=== PATIENT | female | born 1995 | race African-American/Black ===

== ENCOUNTER 2019-01-21 20:08 | Inpatient (IN) | payer MEDICAID ==
[~2019-01-21] VITALS: Ht 172.7 cm; Wt 83.9 kg
[2019-01-21] MEDS ORDERED: DINOPROSTONE 10MG VAGINAL INSERT VG NR (21:30)
[2019-01-21] MEDS ORDERED: METHYLERGONOVINE MALEATE 0.2 MG/ML IM PRN (21:30)
[2019-01-21] MEDS ORDERED: CARBOPROST TROMETHAMINE 250 MCG/ML AMPUL IM PRN (21:30)
[2019-01-21] MEDS ORDERED: NALOXONE HCL 0.4 MG/ML 1ML VIAL IM PRN (21:30)
[2019-01-21] MEDS ORDERED: BUTORPHANOL TARTRATE 2 MG/ML VIAL IV PRN (21:30)
[2019-01-21] MEDS ORDERED: MISOPROSTOL 100MCG TABLET VG SCH (21:30)
[2019-01-21] MEDS ORDERED: MINERAL OIL 30ML BOTTLE PO NR (21:52)
[2019-01-21] MEDS ORDERED: FISH OIL (23:11)
[2019-01-21] MEDS ORDERED: PRENATAL VITAMIN (23:11)
[2019-01-21] MEDS ORDERED: CALCIUM (23:11)
[2019-01-21] MEDS ORDERED: FERROUS SULF (23:11)
[2019-01-22] MEDS: LACTATED RINGERS 1,000 ML IV SCH ×3 (00:01→15:30)
[2019-01-22 00:56] LABS: BASOPHILS % 0.2 % (0.0-2.0); EOSINOPHILS % 0.8 % (0.0-5.0); HEMATOCRIT. 42.5 % (36.0-48.0); HEMOGLOBIN. 14.6 g/dL (12.0-16.0); LYMPHOCYTES % 12.5 % (20.0-50.0); MEAN CORPUSCULAR HEMOGLOBIN 32.4 pg (28.0-32.0); MEAN CORPUSCULAR VOLUME 94.2 fL (81.0-99.0); MEAN PLATELET VOLUME 9.7 fl (7.4-10.4); MONOCYTES % 4.7 % (2.0-8.0); NEUTROPHILS % 81.8 % (40.0-76.0); PLATELET 221 x1000/uL (130-400); RED BLOOD CELL COUNT 4.51 mill/uL (4.2-5.4); RED CELL DISTRIBUTION WIDTH 13.4 % (11.6-14.6)
[2019-01-22 03:03] LABS: INR 0.9; PARTIAL THROMBOPLASTIN TIME 30.7 sec (23.4-31.0); PROTHROMBIN TIME 9.4 sec (9.6-11.0)
[2019-01-22 03:12] LABS: CLARITY URINE CLEAR (CLEAR); COLOR URINE YELLOW (YELLOW); KETONES URINE NEGATIVE (NEGATIVE); LEUKOCYTE ESTERASE URINE TRACE (NEGATIVE); NITRITE URINE NEGATIVE (NEGATIVE); OCCULT BLOOD URINE NEGATIVE (NEGATIVE); PH URINE 6.5 (4.5-8.0); PROTEIN URINE NEGATIVE (NEGATIVE); SPECIFIC GRAVITY URINE 1.006 (1.005-1.030); UROBILINOGEN URINE 0.2 E.U./dL (0.2-1.0)
[2019-01-22 04:08] LABS: *AMPHETAMINES SCREEN URINE NEGATIVE (NEGATIVE); *BARBITURATES SCREEN URINE NEGATIVE (NEGATIVE); *BENZODIAZEPINES SCREEN URINE NEGATIVE (NEGATIVE); *COCAINE SCREEN URINE NEGATIVE (NEGATIVE); CANNABINOID URINE SCREEN NEGATIVE (NEGATIVE); METHADONE URINE SCREEN NEGATIVE (NEGATIVE); OPIATES URINE SCREEN NEGATIVE (NEGATIVE); PHENCYCLIDINE URINE SCREEN NEGATIVE (NEGATIVE)
[2019-01-22] MEDS ORDERED: PENICILLIN G POTASSIUM 5 MMU in DEXT 5% WATER 100 ML IV SCH (07:00)
[2019-01-22] MEDS ORDERED: DEXT 5%/LR + PITOCIN 20UNITS/L 1,000 ML IV SCH ×2 (09:59→23:56)
[2019-01-22] MEDS ORDERED: PENICILLIN G POTASSIUM 2.5 MMU in DEXTROSE 5% WATER 50 ML IV SCH (10:45)
[2019-01-22] MEDS ORDERED: MINERAL OIL 30ML BOTTLE PO NR (10:57)
[2019-01-22] MEDS: PENICILLIN G POTASSIUM 2.5 MMU in DEXTROSE 5% WATER 50 ML IV SCH ×3 (11:18→19:01)
[2019-01-22] MEDS ORDERED: ROPIVACAINE HCL 10MG/ML 20 ML VIAL EPI ONE (11:30)
[2019-01-22] MEDS ORDERED: ROPIVACAINE HCL/PF EPIDURAL 200 ML EPI PRN (11:45)
[2019-01-22] MEDS ORDERED: SODIUM CHLORIDE 0.9% 1,000 ML IR ONE (18:30)
[2019-01-22] MEDS ORDERED: SODIUM CHLORIDE 0.9% IRRIG SOLUTION 1000ML IR NR (19:30)
[2019-01-23] MEDS ORDERED: IBUPROFEN 800MG TABLET PO PRN
[2019-01-23] MEDS ORDERED: METHYLERGONOVINE MALEATE 0.2 MG/ML IM PRN
[2019-01-23] MEDS ORDERED: LANOLIN OINT 7GM TUBE TOP PRN
[2019-01-23] MEDS ORDERED: RHO(D) IMMUNE GLOBULIN 300 MCG/SYR IM PRN
[2019-01-23] MEDS ORDERED: IBUPROFEN 400MG TABLET PO PRN
[2019-01-23 00:50] VITALS: BP 119/55
[2019-01-23 02:21] VITALS: BP 119/55
[2019-01-23] MEDS ORDERED: BENZOCAINE/LANOLIN/ALOE VERA SPRAY TOP PRN (02:30)
[2019-01-23 04:00] VITALS: BP 106/63
[2019-01-23 07:52] LABS: BASOPHILS % 0.3 % (0.0-2.0); EOSINOPHILS % 0.6 % (0.0-5.0); HEMATOCRIT. 35.7 % (36.0-48.0); HEMOGLOBIN. 12.3 g/dL (12.0-16.0); LYMPHOCYTES % 9.5 % (20.0-50.0); MEAN CORPUSCULAR HEMOGLOBIN 32.7 pg (28.0-32.0); MEAN CORPUSCULAR VOLUME 94.7 fL (81.0-99.0); MEAN PLATELET VOLUME 9.8 fl (7.4-10.4); MONOCYTES % 6.9 % (2.0-8.0); NEUTROPHILS % 82.7 % (40.0-76.0); PLATELET 190 x1000/uL (130-400); RED BLOOD CELL COUNT 3.77 mill/uL (4.2-5.4); RED CELL DISTRIBUTION WIDTH 13.1 % (11.6-14.6)
[2019-01-23] MEDS: PRENATAL VIT/FE FUMARATE/FA TABLET PO SCH (08:31)
[2019-01-23 08:38] VITALS: BP 101/58
[2019-01-23 16:09] VITALS: BP 125/80
[2019-01-23 20:00] VITALS: BP 124/79
[2019-01-23] MEDS ORDERED: DOCUSATE SODIUM 100MG CAPSULE PO SCH (21:00)
[2019-01-24 04:00] VITALS: BP 114/84
[2019-01-24 07:30] VITALS: BP 110/71
[2019-01-24] MEDS: PRENATAL VIT/FE FUMARATE/FA TABLET PO SCH (09:04)
== END 2019-01-24 12:00 | disposition home or self-care (01) | DRG 560 ==
LOC: OBSVTOIN 20:08 → 8 EST LDRP 20:08 → 8EST 01-22 23:45
PROVIDERS: ADMIT Obstetrics & Gynecology; ATTEND Obstetrics & Gynecology
PROC: 10E0XZZ Delivery of Products of Conception, External Approach (ICD-10-PCS; principal; 2019-01-23)
PROC: 3E0R3BZ Introduction of Anesthetic Agent into Spinal Canal, Percutaneous Approach (ICD-10-PCS; 2019-01-23)
PROC: 00HU33Z Insertion of Infusion Device into Spinal Canal, Percutaneous Approach (ICD-10-PCS; 2019-01-23)
PROC: 0W8NXZZ Division of Female Perineum, External Approach (ICD-10-PCS; 2019-01-23)
DX: O48.0 Post-term pregnancy (principal); D62 Acute posthemorrhagic anemia; O99.824 Streptococcus B carrier state complicating childbirth; Z37.0 Single live birth; Z3A.41 41 weeks gestation of pregnancy; D72.829 Elevated white blood cell count, unspecified; O99.12 Other diseases of the blood and blood-forming organs and certain disorders involving the immune mechanism complicating childbirth; O99.03 Anemia complicating the puerperium
CPT/HCPCS: 36415; 76815; 76818; 80305; 86592; 86703; 86850; 86900; 87340; 96360; 96365; G0378; J0595; J2540; J2590; J2795; J7060

== ENCOUNTER 2024-01-24 11:17 | Emergency (ER) | payer MEDICAID, OTHER ==
[~2024-01-24] VITALS: Ht 170.2 cm; Wt 58.0 kg
[2024-01-24 11:18] VITALS: BP 117/73; RESP 18; O2SAT 99
[2024-01-24 11:20] VITALS: PULSE 102
[2024-01-24 12:06] LABS: BASOPHILS % 0.7 % (0.0-2.0); EOSINOPHILS % 3.2 % (0.0-5.0); HEMATOCRIT. 27.2 % (36.0-48.0); LYMPHOCYTES % 12.5 % (20.0-50.0); MEAN CORPUSCULAR HEMOGLOBIN 18.4 pg (28.0-32.0); MEAN CORPUSCULAR HGB CONC 29.4 g/dL (31.0-37.0); MEAN CORPUSCULAR VOLUME 62.8 fL (81.0-99.0); MEAN PLATELET VOLUME 8.5 fl (7.4-10.4); MONOCYTES % 6.8 % (2.0-8.0); NEUTROPHILS % 76.8 % (40.0-76.0); PLATELET 439 x1000/uL (130-400); RED BLOOD CELL COUNT 4.33 mill/uL (4.2-5.4); RED CELL DISTRIBUTION WIDTH 21.8 % (11.6-14.6)
[2024-01-24 12:11] LABS: DIFFERENTIAL COMMENT 1
[2024-01-24 12:12] LABS: ADD RBC MORPHOLOGY YES
[2024-01-24 12:13] LABS: CHLORIDE 105 mEq/L (98-107); POTASSIUM 3.6 mEq/L (3.5-5.1); SODIUM 138 mEq/L (136-145)
[2024-01-24 12:14] LABS: CALCIUM 8.9 mg/dL (8.7-10.4); CARBON DIOXIDE 26 mEq/L (21-32)
[2024-01-24 12:19] LABS: CREATININE 0.7 mg/dL (0.6-1.0); GLUCOSE 77 mg/dL (70-105); UREA NITROGEN BLOOD 7 mg/dL (9-23)
[2024-01-24] MEDS ORDERED: D-ME473S50 PO (12:25)
[2024-01-24] MEDS ORDERED: ALBU18HF2 IH (12:25)
[2024-01-24] MEDS ORDERED: ACET-2708 PO (12:25)
[2024-01-24] MEDS ORDERED: AZIT250T12 MT (12:25)
[2024-01-24] MEDS ORDERED: P50 PO (12:25)
[2024-01-24] MEDS ORDERED: FERR325T6 MT (12:25)
[2024-01-24 12:26] VITALS: TEMP 98.1
[2024-01-24] MEDS: ACETAMINOPHEN 325MG TABLET PO STA (12:26)
[2024-01-24 13:08] LABS: ANISOCYTOSIS 3+; MICROCYTOSIS 4+
[2024-01-24 13:09] LABS: HYPOCHROMASIA 1+; OVALOCYTES 1+
[2024-01-24 14:30] LABS: PLATELET ESTIMATE SLIGHTLY INCREASED
== END 2024-01-24 12:50 ==
LOC: ER 11:17
DX: J20.9 Acute bronchitis, unspecified (principal); J45.909 Unspecified asthma, uncomplicated; D64.9 Anemia, unspecified; Z79.899 Other long term (current) drug therapy
CPT/HCPCS: 36415; 71045; 80048; 85025; 99284

== ENCOUNTER 2024-01-29 22:04 | Emergency (ER) | payer OTHER ==
[~2024-01-29] VITALS: Ht 172.7 cm; Wt 58.0 kg
[~2024-01-29 22:04] MED LIST: ACET-2708 PO; ALBU18HF2 IH; AZIT250T12 MT; D-ME473S50 PO; FERR325T6 MT; P50 PO
[2024-01-29 22:19] VITALS: BP 131/75; PULSE 102; RESP 18; TEMP 98; O2SAT 100
== END 2024-01-30 00:41 | disposition left against medical advice (07) ==
LOC: ER 22:04
DX: H53.2 Diplopia (principal); R05.9 Cough, unspecified; R51.9 Headache, unspecified; Z79.899 Other long term (current) drug therapy
CPT/HCPCS: 99281

== ENCOUNTER 2025-07-13 13:55 | Inpatient (IN) | payer MEDICAID ==
[~2025-07-13] VITALS: Ht 167.6 cm; Wt 60.3 kg
[2025-07-13 13:58] VITALS: O2SAT 96
[2025-07-13 17:01] LABS: *AMPHETAMINES SCREEN URINE NEGATIVE (NEGATIVE)
[2025-07-13 17:02] LABS: *BARBITURATES SCREEN URINE NEGATIVE (NEGATIVE); *BENZODIAZEPINES SCREEN URINE NEGATIVE (NEGATIVE); *COCAINE SCREEN URINE PRESUMPTIVE POSITIVE (NEGATIVE); CANNABINOID URINE SCREEN NEGATIVE (NEGATIVE); ECSTASY MDMA SCREEN URINE NEGATIVE (NEGATIVE); METHADONE URINE SCREEN NEGATIVE (NEGATIVE); OPIATES URINE SCREEN NEGATIVE (NEGATIVE); PHENCYCLIDINE URINE SCREEN NEGATIVE (NEGATIVE)
[2025-07-13 22:19] LABS: BASOPHILS % 0.8 % (0.0-2.0); EOSINOPHILS % 2.8 % (0.0-5.0); LYMPHOCYTES % 33.2 % (20.0-50.0); MEAN PLATELET VOLUME 8.6 fl (7.4-10.4); MONOCYTES % 9.4 % (2.0-8.0); NEUTROPHILS % 53.8 % (40.0-76.0); PLATELET 455 x1000/uL (130-400); RED BLOOD CELL COUNT 4.36 mill/uL (4.2-5.4); RED CELL DISTRIBUTION WIDTH 22.8 % (11.6-14.6)
[2025-07-13 22:24] LABS: HEMATOCRIT. 23.9 % (36.0-48.0)
[2025-07-13 22:31] LABS: ADD RBC MORPHOLOGY YES; HEMOGLOBIN. 6.8 g/dL (12.0-16.0)
[2025-07-13 22:42] LABS: CREATININE 0.9 mg/dL (0.6-1.0); ETHANOL BLOOD < 10 mg/dL (<10); UREA NITROGEN BLOOD 10 mg/dL (9-23)
[2025-07-13 22:43] LABS: PROTEIN TOTAL 6.3 g/dL (6.0-8.3)
[2025-07-13 22:44] LABS: ASPARTATE AMINOTRANSFERASE 28 IU/L (<34); BILIRUBIN DIRECT 0.1 mg/dL (<=3.0); BILIRUBIN TOTAL 0.4 mg/dL (0.1-1.0)
[2025-07-13 22:49] LABS: HCG SCREEN NEGATIVE
[2025-07-13 23:03] LABS: CLARITY URINE CLEAR (CLEAR); COLOR URINE YELLOW (YELLOW); GLUCOSE URINE NEGATIVE (NEGATIVE); KETONES URINE NEGATIVE (NEGATIVE); LEUKOCYTE ESTERASE URINE 1+ (NEGATIVE); NITRITE URINE POSITIVE (NEGATIVE); OCCULT BLOOD URINE NEGATIVE (NEGATIVE); PH URINE 7.0 (4.5-8.0); PROTEIN URINE NEGATIVE (NEGATIVE); SPECIFIC GRAVITY URINE 1.015 (1.005-1.030); UROBILINOGEN URINE 1.0 E.U./dL (0.2-1.0)
[2025-07-13 23:25] LABS: PLATELET ESTIMATE INCREASED
[2025-07-13 23:39] LABS: BACTERIA URINE 2+; RBC URINE 0-2 /hpf (0-2); SQUAMOUS EPITHELIAL CELL URINE 2+ /lpf (RARE/1+)
[2025-07-14 03:05] VITALS: BP 94/64; PULSE 85; RESP 18; TEMP 36.8072; TEMP 37.1; O2SAT 100
[2025-07-14] MEDS: FERROUS SULFATE 325MG TABLET PO SCH (07:30)
[2025-07-14] MEDS: CEFTRIAXONE 1GM/50ML 50 ML IV SCH (10:00)
[2025-07-15 04:00] VITALS: RESP 18
[2025-07-15] MEDS ORDERED: LEVO750T68 MT (11:26)
[2025-07-15 20:00] VITALS: BP_SYST 133; BP_SYST 199; BP_DIAS 77; PULSE 99; RESP 19; TEMP 36.7
[2025-07-15] MEDS: QUETIAPINE FUMARATE 25MG TABLET PO SCH (21:00)
[2025-07-16] VITALS: BP 112/63; PULSE 93; PULSE 98; RESP 17; RESP 18; TEMP 36.6; O2SAT 98
[2025-07-16 04:01] VITALS: RESP 20
[2025-07-16] MEDS: PANTOPRAZOLE 40MG DR TABLET PO SCH (06:09)
[2025-07-16 07:25] VITALS: BP 126/66; PULSE 93; RESP 18; TEMP 36.2; O2SAT 98
[2025-07-16 08:48] LABS: BASOPHILS % 0.9 % (0.0-2.0); EOSINOPHILS % 3.6 % (0.0-5.0); HEMATOCRIT. 26.8 % (36.0-48.0); HEMOGLOBIN. 7.3 g/dL (12.0-16.0); LYMPHOCYTES % 15.8 % (20.0-50.0); MEAN PLATELET VOLUME 8.7 fl (7.4-10.4); MONOCYTES % 7.4 % (2.0-8.0); NEUTROPHILS % 72.3 % (40.0-76.0); PLATELET 395 x1000/uL (130-400); RED BLOOD CELL COUNT 4.77 mill/uL (4.2-5.4); RED CELL DISTRIBUTION WIDTH 23.2 % (11.6-14.6)
[2025-07-16 09:15] LABS: BILIRUBIN TOTAL 0.3 mg/dL (0.1-1.0)
[2025-07-16 09:16] LABS: CREATININE 0.8 mg/dL (0.6-1.0); UREA NITROGEN BLOOD 15 mg/dL (9-23)
[2025-07-16 09:17] LABS: FOLIC ACID (FOLATE) SERUM 12.88 ng/mL (>5.38); PROTEIN TOTAL 6.5 g/dL (6.0-8.3); VITAMIN B12 SERUM 462 pg/mL (211-911)
[2025-07-16 09:18] LABS: ASPARTATE AMINOTRANSFERASE 19 IU/L (<34); BILIRUBIN DIRECT < 0.1 mg/dL (<=3.0); PHOSPHORUS 2.5 mg/dL (2.5-4.9)
[2025-07-16 09:48] LABS: HEPATITIS A AB IGM NEGATIVE (Negative); HEPATITIS B CORE AB IGM NEGATIVE (Negative)
[2025-07-16 09:49] LABS: HEPATITIS C AB NON REACTIVE (Neg) (Negative)
[2025-07-16 11:23] VITALS: BP 127/71; PULSE 100; RESP 18; TEMP 36.3; O2SAT 99
[2025-07-16 16:00] VITALS: BP 118/68; PULSE 92; RESP 18; TEMP 36.4; O2SAT 98
== END 2025-07-16 17:28 | disposition home or self-care (01) | DRG 663 ==
LOC: ER 14:16 → 7EST 07-14 01:44 → EDBEDREQ 07-14 01:49 → EDBEDREQTM 07-14 01:49 → ENRESERV 07-14 02:36
PROVIDERS: ADMIT Internal Medicine; ATTEND Internal Medicine
DX: D50.9 Iron deficiency anemia, unspecified (principal); R45.851 Suicidal ideations; N39.0 Urinary tract infection, site not specified; F32.A Depression, unspecified; F39 Unspecified mood [affective] disorder; Z59.00 Homelessness unspecified; F17.210 Nicotine dependence, cigarettes, uncomplicated; Z53.20 Procedure and treatment not carried out because of patient's decision for unspecified reasons; F41.9 Anxiety disorder, unspecified; F19.90 Other psychoactive substance use, unspecified, uncomplicated
CPT/HCPCS: 36415; 80048; 80076; 80305; 80307; 80320; 80329; 81003; 82607; 82728; 82746; 83540; 83550; 83735; 84100; 84703; 85025; 85044; 86705; 86709; 86920; 87340; 87426; 99285; J0696; G0480